=== PATIENT | male | born 1970 | race Caucasian/White ===

== ENCOUNTER 2017-08-19 08:18 | Day surgery (SDC) | payer BC ==
[~2017-08-19] VITALS: Ht 180.3 cm; Wt 90.7 kg
[2017-08-19] VITALS (9 sets, daily range): BP systolic 121–151; BP diastolic 85–100
[~2017-08-19 08:18] MED LIST: ceFAZolin 1gm in D5W 55ml IVP ONE; celeBREX 200mg Cap **SURGERY PATIENTS ONLY ORAL ONE; oxyCONTIN 20mg tab ORAL ONE
[2017-08-19] MEDS ORDERED: NKM (08:52)
[2017-08-19] MEDS ORDERED: celeBREX 200mg Cap **SURGERY PATIENTS ONLY ORAL ONE (09:07)
[2017-08-19] MEDS ORDERED: LR 1000ml 1,000 ML IVLG SCH (10:03)
--- NOTE | 2017-08-19 10:07 | Anethesia Preoperative Eval ---
Anesthesia Pre-op PMH/ROS General Date of Evaluation: Aug 19, 2017 Time of Evaluation: 10:59 Anesthesiologist: Jemima ASA Score: ASA 2 Mallampati Score Class I : Soft palate, uvula, fauces, pillars visible Class II: Soft palate, uvula, fauces visible Class III: Soft palate, base of uvula visible Class IV: Only hard plate visible Mallampati Classification: Class II Surgeon: Pb Diagnosis: L Shoulder Pain Surgical Procedure: L Shoulder Arthroscopy, Rotator Cuff Repair Anesthesia History: none Family History: no anesthesia problems Allergies: Coded Allergies: No Known Allergies (Unverified , 08/18/17) Medications: see eMAR Past Medical History Cardiovascular: Reports: HTN HEENT: Reports: [place] (L), [place] (R) Other: obesity - BI 30 Anesthesia Pre-op Phys. Exam Physician Exam Last Vital Signs Date Time Temp Pulse Resp B/P (MAP) Pulse Ox O2 Delivery O2 Flow Rate FiO2 08/19/17 08:58 97.9 66 20 121/85 98 Room Air 97.9 Constitutional: NAD Neurologic: CN 2-12 intact Cardiovascular: RRR Respiratory: CTA Gastrointestinal: S/NT/ND Airway Exam Mallampati Score: Class II MO: full ROM: full Teeth: intact Anesthesia Pre-op A/P Risk Assessment & Plan Assessment: ASA 2 Plan: GA, BIS, L Supraclavicular Block Status Change Before Surgery: No Pre-Antibiotics Dru Grams Ancef IV Given Within 1 Hr of Incision: Yes Time Given: 11:21 Jeff Onofre MD Aug 19, 2017 10:07
[2017-08-19] MEDS ORDERED: Ketorolac 30mg Inj IV PRN ×2 (10:15)
[2017-08-19] MEDS ORDERED: Midazolam 2mg/2ml Inj IVP PRN (10:15)
[2017-08-19] MEDS ORDERED: Atropine Inj 1mg/10ml Syr IV PRN (10:15)
[2017-08-19] MEDS ORDERED: DiphenhydrAMINE 50mg/ml Inj IVP PRN (10:15)
[2017-08-19] MEDS ORDERED: Norco 5mg/325mg tab ORAL PRN ×2 (10:15→12:00)
[2017-08-19] MEDS ORDERED: Hydromorphone 0.5mg/0.5ml inj IVP PRN (10:15)
[2017-08-19] MEDS ORDERED: fentaNYL 100 mcg/2 mL IV PRN (10:15)
[2017-08-19] MEDS ORDERED: Labetalol 5mg/ml 20ml vial IV PRN (10:15)
[2017-08-19] MEDS ORDERED: LORazepam Inj 2mg/ml 1ml IV PRN (10:15)
[2017-08-19] MEDS ORDERED: HYDROcodone/Acetamin 7.5/325 tab ORAL PRN (10:15)
[2017-08-19] MEDS ORDERED: oxyCODONE HCL/Acetaminophen 5/325mg ORAL PRN (10:15)
[2017-08-19] MEDS ORDERED: Ropivacaine 5mg/ml Vial 30ml INJ ONE (10:34)
[2017-08-19] MEDS ORDERED: Bupivacaine 0.25% Inj 30ml INJ ONE (10:39)
[2017-08-19] MEDS ORDERED: EPINEPHrine 1mg/1ml Amp ONE ×2 (10:39→13:10)
[2017-08-19] MEDS ORDERED: NS Irrig 1000ml ONE (11:00)
[2017-08-19] MEDS ORDERED: Dexamethasone 4mg/ml vial ONE (11:00)
[2017-08-19] MEDS ORDERED: Midazolam 2mg/2ml Inj ONE (11:00)
[2017-08-19] MEDS ORDERED: Lidocaine 1% MPF 10mg/ml 5ml ONE (11:00)
[2017-08-19] MEDS ORDERED: Propofol 200mg/20ml IV ONE (11:00)
[2017-08-19] MEDS ORDERED: NS Irrig 4000ml IRRIG ONE ×2 (11:00→12:07)
[2017-08-19] MEDS ORDERED: LR 1000ml ONE (11:00)
[2017-08-19] MEDS ORDERED: Alfentanil 2ml Inj ONE (11:00)
--- NOTE | 2017-08-19 11:03 | Pre-Procedure Note/Attestation ---
Pre-Procedure Note/Attestation Complete Prior to Procedure Planned Procedure: left Procedure Narrative: shoulder arthroscopy, rc repair Indications for Procedure Pre-Operative Diagnosis: left shoulder rct Attestation I attest that I discussed the nature of the procedure; its benefits; risks and complications; and alternatives (and the risks and benefits of such alternatives ), prior to the procedure, with the patient (or the patient's legal accounts receivable representative). I attest that, if there was a reasonable possibility of needing a blood transfusion, the patient (or the patient's legal accounts receivable representative) was given the [facility] standardized written summary, pursuant to the Melo [employer] M Blood Safety Act ([place] [facility] and Safety Code # 1645, as amended). I attest that I re-evaluated the patient just prior to the surgery and that there has been no change in the patient's H&P, except as documented below: HEIDI MERCADO Aug 19, 2017 11:03
--- NOTE | 2017-08-19 11:03 | Operative Note - PDOC ---
Operative Note Operative Note Pre-op Diagnosis: left shoulder rct Procedure: left shoulder arthroscopy rc repair Post-op Diagnosis: same as pre-op plus Operative Findings: consistent w/pre-op dx studies Anesthesia: regional Specimen: none Complications: none Condition: stable Estimated Blood Loss: none Implant(s) used?: Yes HEIDI MERCADO Aug 19, 2017 11:03
[2017-08-19] MEDS ORDERED: Tylenol #3 tab (300mg/30mg) ORAL PRN (12:00)
[2017-08-19] MEDS ORDERED: D5 1/2NS 1,000 ML IV SCH (12:00)
[2017-08-19] MEDS ORDERED: HYDROmorphone 1mg/ml Carpuject SUBQ PRN (12:00)
--- NOTE | 2017-08-19 12:04 | Immediate Post-Op Evaluation ---
Immediate Post-Op Evalulation Immediate Post-Op Evalulation Procedure: L Shoulder Arthroscopy, Rotator Cuff Repair Date of Evaluation: Aug 19, 2017 Time of Evaluation: 14:05 IV Fluids: 500 LR Blood Products: 0 Estimated Blood Loss: 20 Urinary Output: 0 Blood Pressure Systolic: 151 Blood Pressure Diastolic: 100 Pulse Rate: 94 Respiratory Rate: 16 O2 Sat by Pulse Oximetry: 100 Temperature (Fahrenheit): 97.3 Pain Score (1-10): 1 Nausea: No Vomiting: No Complications 0 Patient Status: awake, reacts, patent, extubated, none Hydration Status: adequate Dru Grams Ancef IV Given Within 1 Hr of Incision: Yes Time Given: 11:21 Jeff Onofre MD Aug 19, 2017 12:04
--- NOTE | 2017-08-19 12:05 | 48 Hour Post Anesthesia Eval ---
Post Anesthesia Evaluation Procedure: L Shoulder Arthroscopy, Rotator Cuff Repair Date of Evaluation: Aug 19, 2017 Time of Evaluation: 16:11 Blood Pressure Systolic: 128 0: 87 Pulse Rate: 67 Respiratory Rate: 18 Temperature (Fahrenheit): 98.3 O2 Sat by Pulse Oximetry: 100 Airway: patent Nausea: No Vomiting: No Pain Intensity: 1 Hydration Status: adequate Cardiopulmonary Status: Stable Mental Status/LOC: patient returned to baseline Follow-up Care/Observations: 0 Post-Anesthesia Complications: 0 Follow-up care needed: ready to discharge Jeff Onofre MD Aug 19, 2017 12:05
--- NOTE | 2017-08-20 03:00 | Operative Note - Dictated ---
DATE OF OPERATION: 08/19/2017 PREOPERATIVE DIAGNOSIS: Left shoulder massive rotator cuff tear along the supraspinatus and infraspinatous tendon. POSTOPERATIVE DIAGNOSIS: Left shoulder massive rotator cuff tear along with supraspinatus and infraspinatous tendon. PROCEDURES: 1. Left shoulder extensive intraoperative debridement. 2. Left shoulder arthroscopic rotator cuff repair involving the supraspinous and infraspinatous tendon. 3. Subacromial decompression and bursectomy. 4. AC joint coplaning. SURGEON: Lokesh Ambriz M.D. ANESTHESIA: Interscalene with general. INDICATION FOR PROCEDURE: The patient is a 47-year-old gentleman, who reports pain in the shoulder and had a significant rotator cuff tear. Given his age and activity level, he was indicative of operative fixation. Risks, limitations, expectations, and complications of procedure were discussed in detail. All questions were addressed. DESCRIPTION OF PROCEDURE: After informed consent was obtained, the patient was brought to the operative room. The patient was placed under monitored anesthesia control. The patient was then carefully placed in the beach chair position. Left shoulder was prepped and draped in a sterile manner. Time-out was performed. Posterolateral skin incision was then made. Trocar was introduced into the glenohumeral joint. There is no significant chondral damage, and the anterior labrum appeared to be intact. The footprint of the infraspinatus and supraspinatus completely devoid. The bone lateral to the articular margin was debrided off soft tissue. The camera was repositioned in the subacromial space. The bursal tissue was debrided to better visualize the bursal side of the rotator cuff tear. Undersurface of the acromion was identified. Acromioplasty was started from medial to lateral, and completed from posterior to anterior. At this point, attention was turned towards the arthroscopic rotator cuff repair. Soft tissue releases were performed. Two margin convergence stitches were placed. Two mattress sutures were placed along the infraspinatus. Additional two mattress sutures were placed along the supraspinatus. Once this was secured, two lateral row anchors were also placed to recreate the footprint. Once that was done, the camera was removed. Portal sites were closed with 3-0 Monocryl sutures. Steri-Strips and a sterile dressing were applied. The patient was awoken and taken to recovery room with stable vital signs. EBL: Minimal. COMPLICATIONS: None. SPECIMENS: None. IMPLANTS: Include two rotator cuff anchors and two lateral row anchors. Lokesh Ambriz M.D. DR: MURTAZA JOB#: [id number] CC: [email or web address]
== END 2017-08-19 15:25 | disposition home or self-care (01) ==
LOC: SUR 08:18
DX: M75.122 Complete rotator cuff tear or rupture of left shoulder, not specified as traumatic (principal); I10 Essential (primary) hypertension
CPT/HCPCS: 29823; 29826; 29827; C1713; J0171; J1100; J1885; J2250; J2405; J2704; J2795; J3490; J7120; 94003; 94150